=== PATIENT | female | born 1965 | race Caucasian/White ===

== ENCOUNTER 2018-09-20 06:43 | Day surgery (SDC) | payer OTHER ==
[~2018-09-20] VITALS: Ht 162.6 cm; Wt 57.8 kg
[~2018-09-20 06:43] MED LIST: ALL DAY ALLERGY10 M1 PO; ARIP10 PO; ATOR40TA PO; Abilify5 MG PO; Buspirone HCl30 MG PO; CEPH500 PO; CLON1 PO; CLON2; CLON2 PO; CONEST.625 PO; DICLOFENAC SOD100 G1 TOP; ESCI20; ESCI20 PO; ESOM20 PO; IBU800 MG PO; LAMO100; LAMO100 PO; LITH450ER; LITH450ER PO; LITHIUM; NAPR500 PO; OMEP20ER PO; OXYACE5T PO; PENVK500 PO; QUET100 PO; RANI150 PO; TEGRETOL; VENL150ER PO; Zantac150 MG PO; [UNRECOGNIZED DRUG - REMARK]; [UNRECOGNIZED DRUG - REMARK]
== END 2018-09-20 08:55 | disposition home or self-care (01) ==
LOC: ORSCSDS 06:43
PROVIDERS: Surgery
PROC: 0DBL8ZX Excision of Transverse Colon, Via Natural or Artificial Opening Endoscopic, Diagnostic (ICD-10-PCS; principal; 2018-09-20 08:00)
PROC: 0DBN8ZX Excision of Sigmoid Colon, Via Natural or Artificial Opening Endoscopic, Diagnostic (ICD-10-PCS; principal; 2018-09-20 08:00)
DX: Z12.11 Encounter for screening for malignant neoplasm of colon (principal); D12.3 Benign neoplasm of transverse colon; D12.5 Benign neoplasm of sigmoid colon; Z86.010 Personal history of colon polyps; F17.210 Nicotine dependence, cigarettes, uncomplicated; F31.9 Bipolar disorder, unspecified; F41.8 Other specified anxiety disorders; E78.5 Hyperlipidemia, unspecified; K21.9 Gastro-esophageal reflux disease without esophagitis; Z79.899 Other long term (current) drug therapy
CPT/HCPCS: 88305; J0330; J0461; J1980; J2405; J2704; J7120

== ENCOUNTER 2019-08-24 22:44 | Emergency (ER) | payer OTHER ==
[~2019-08-24] VITALS: Ht 162.6 cm; Wt 54.4 kg
[2019-08-25] MEDS ORDERED: Roxicodone5 MG PO (02:02)
== END 2019-08-25 02:25 | disposition home or self-care (01) ==
LOC: ER 22:44
DX: M75.32 Calcific tendinitis of left shoulder (principal); F41.9 Anxiety disorder, unspecified; F31.9 Bipolar disorder, unspecified; F17.200 Nicotine dependence, unspecified, uncomplicated; Z79.899 Other long term (current) drug therapy
CPT/HCPCS: 73030; 99283-25; A9270; A9270-GY

== ENCOUNTER 2020-07-19 18:16 | Emergency (ER) | payer OTHER ==
[~2020-07-19] VITALS: Ht 162.6 cm; Wt 63.0 kg
[~2020-07-19 18:16] MED LIST changes: +Roxicodone5 MG PO
[2020-07-19] MEDS ORDERED: VRAYLAR3 MG PO (19:03)
[2020-07-19] MEDS ORDERED: CLIN300 PO (19:13)
== END 2020-07-19 19:30 | disposition home or self-care (01) ==
LOC: ER 18:16
DX: L02.01 Cutaneous abscess of face (principal); L73.9 Follicular disorder, unspecified
CPT/HCPCS: 99282; A9270